=== PATIENT | female | born 1985 | race Caucasian/White ===

== ENCOUNTER → 2018-01-17 | Outpatient (CLI) | payer OTHER | END | disposition home or self-care (01) | LOC: LAB SHORT 10:34 → LAB EV 10:34 | DX: J02.9 Acute pharyngitis, unspecified (principal) | CPT/HCPCS: 87070 ==

== ENCOUNTER → 2018-09-30 | Outpatient (CLI) | payer OTHER | END | disposition home or self-care (01) | LOC: LAB EV 11:29 → LAB SHORT 11:29 | DX: J02.9 Acute pharyngitis, unspecified (principal) | CPT/HCPCS: 87081 ==

== ENCOUNTER 2020-09-30 18:12 | Emergency (ER) | payer OTHER ==
[~2020-09-30] VITALS: Ht 175.3 cm; Wt 181.4 kg
[2020-09-30] MEDS ORDERED: TOPI25 PO (19:49)
[2020-09-30] MEDS ORDERED: Cyclobenzaprine5 MG PO (19:58)
== END 2020-09-30 20:32 | disposition home or self-care (01) ==
LOC: ER 18:12
DX: M54.5 Low back pain (principal); G89.29 Other chronic pain; Z79.899 Other long term (current) drug therapy
CPT/HCPCS: 96372; 99283; J1885

== ENCOUNTER → 2022-04-09 | Outpatient (CLI) | payer OTHER ==
[~2022-04-09] MED LIST: Cyclobenzaprine5 MG PO; TOPI25 PO
[2022-04-10 13:04] LABS: Stool Occult Bld Immuno 1 Negative (NEGATIVE)
== END | disposition home or self-care (01) ==
LOC: LAB 15:00 → LAB SHORT 15:00
PROVIDERS: Physician Assistant
DX: K92.1 Melena (principal)
CPT/HCPCS: 82274

== ENCOUNTER 2022-11-05 19:29 | Emergency (ER) | payer OTHER ==
[~2022-11-05] VITALS: Ht 177.8 cm; Wt 190.5 kg
[2022-11-05 19:33] VITALS: BP 156/87
[2022-11-05] MEDS ORDERED: ZOLOFT10013 PO (22:13)
[2022-11-05] MEDS ORDERED: BUPROPION XL150 M1 PO (22:13)
[2022-11-05] MEDS ORDERED: LISINOPRIL-HCT1 EACH PO (22:14)
== END 2022-11-05 22:20 | disposition home or self-care (01) ==
LOC: ER 19:29
DX: R20.2 Paresthesia of skin (principal); Z88.6 Allergy status to analgesic agent; Z88.8 Allergy status to other drugs, medicaments and biological substances
CPT/HCPCS: 99283

== ENCOUNTER 2024-05-15 18:40 | Emergency (ER) | payer OTHER ==
[~2024-05-15] VITALS: Ht 177.8 cm; Wt 181.4 kg
[~2024-05-15 18:40] MED LIST changes: +BUPROPION XL150 M1 PO; +LISINOPRIL-HCT1 EACH PO; +ZOLOFT10013 PO
[2024-05-15 19:38] LABS: BASOPHILS ABSOLUTE AUTO 0.04 K/mm3 (0.00-0.23); BASOPHILS PERCENT AUTO 1 % (0-2); EOSINOPHILS ABSOLUTE AUTO 0.25 K/mm3 (0.00-0.68); EOSINOPHILS PERCENT AUTO 4 % (0-6); Hematocrit 37.9 % (33.0-51.0); Hemoglobin 12.4 g/dL (11.5-16.0); IMMATURE GRAN ABSOLUTE AUTO 0.03 K/mm3 (0.00-0.10); IMMATURE GRAN PERCENT AUTO 0 % (0-1); LYMPHOCYTES ABSOLUTE AUTO 2.13 K/mm3 (0.84-5.20); LYMPHOCYTES PERCENT AUTO 32 % (21-46); MONOCYTES ABSOLUTE AUTO 0.46 K/mm3 (0.16-1.47); MONOCYTES PERCENT AUTO 7 % (4-13); Mean Corpuscular HGB 28.6 pg (26.0-34.0); Mean Corpuscular HGB Conc 32.7 g/dL (31.5-36.5); Mean Corpuscular Volume 87 fL (80-100); Mean Platelet Volume 11.3 fL (9.1-12.4); NEUTROPHILS ABSOLUTE AUTO 3.81 K/mm3 (1.96-9.15); NEUTROPHILS PERCENT AUTO 57 % (41-73); Platelet Count 224 K/mm3 (150-400); RDW Coefficient Variation 13.6 % (11.7-14.2); RDW Standard Deviation 43.3 fL (35.1-46.3); Red Blood Cell Count 4.34 M/mm3 (3.80-5.20); White Blood Cell Count 6.72 K/mm3 (4.00-11.30)
[2024-05-15 20:03] LABS: Albumin, Blood 3.6 g/dL (3.4-5.0); Albumin/Globulin Ratio 0.9 (0.8-1.8); Bilirubin, Total 0.3 mg/dL (0.1-1.0); Bun/Creatinine Ratio 19.5 (12.0-20.0); Calcium, Blood 9.2 mg/dL (8.5-10.1); Creatinine, Blood 0.51 mg/dL (0.40-1.00); Globulin, Blood 3.9 g/dL (2.2-4.0); Potassium, Blood 3.4 mmol/L (3.5-5.5); Total Protein, Blood 7.5 g/dL (6.4-8.2)
[2024-05-15 20:35] VITALS: BP 142/96
[2024-05-15] MEDS ORDERED: CYCL10 PO (22:27)
[2024-05-15] MEDS ORDERED: OXAYDO5 M1 PO (22:27)
== END 2024-05-15 23:08 | disposition home or self-care (01) ==
LOC: ER 18:40
PROVIDERS: Student in an Organized Health Care Education/Training Program
DX: G89.18 Other acute postprocedural pain (principal); R10.12 Left upper quadrant pain; Z98.84 Bariatric surgery status; Z88.6 Allergy status to analgesic agent; Z88.8 Allergy status to other drugs, medicaments and biological substances; Z79.899 Other long term (current) drug therapy; Z59.89 Other problems related to housing and economic circumstances
CPT/HCPCS: 74177; 80053; 83690; 84484; 85025; 93005; 93010; 99284-25; Q9967